=== PATIENT | female | born 1995 | race Caucasian/White ===

== ENCOUNTER → 2023-02-12 | Outpatient (CLI) | payer BC ==
[2023-02-12 21:42] LABS: Basophils # (A) 0.07 X 10*3/uL (0.00-0.10); Basophils % (A) 0.9 %; Eosinophils # (A) 0.14 X 10*3/uL (0.04-0.35); Eosinophils % (A) 1.8 %; HCT 39.5 % (37.2-46.3); Lymphocytes # (A) 2.94 X 10*3/uL (0.90-5.00); Lymphocytes % (A) 37.2 %; MCH 31.2 pg (27.0-32.0); MCHC 32.9 g/dL (32.0-37.0); MCV 94.7 FL (80.0-97.0); Mean Platelet Volume 10.6 FL (9.5-12.2); Monocytes # (A) 0.49 X 10*3/uL (0.20-1.00); Monocytes % (A) 6.2 %; NRBC Per 100 WBC 0 X 10*3/uL (0.00-0.01); Neutrophils # (A) 4.24 X 10*3/uL (1.80-7.70); Neutrophils % (A) 53.6 %; Platelet Count 316 X 10*3/uL (140-440); RBC 4.17 X 10*6/uL (4.10-5.20); RDW 12.2 % (11.5-14.5)
== END | disposition home or self-care (01) ==
LOC: LABPAT 15:14
PROVIDERS: ATTEND Obstetrics & Gynecology
DX: Z01.812 Encounter for preprocedural laboratory examination (principal); T83.9XXA Unspecified complication of genitourinary prosthetic device, implant and graft, initial encounter; Y82.9 Unspecified medical devices associated with adverse incidents
CPT/HCPCS: 85025

== ENCOUNTER 2023-02-16 09:04 | Day surgery (SDC) | payer BC ==
[~2023-02-16 09:04] MED LIST: DEXAMETHASONE SOD PHOSPHATE 4 MG/ML 1 ML VIAL IV ONE; HYDROmorphone 0.5 MG/0.5 ML SYRINGE IVP PRN; LACTATED RINGERS 1,000 ML IV SCH; LIDOCAINE 1% (10MG/ML) FOR IV START INTRADERMA PRN; ONDANSETRON 4 MG/2 ML VIAL IVP ONE; Pre Op ABX Message 1 EACH MISC MISCELLANE ONE; droPERidol 5 MG/2 ML VIAL IVP ONE
[2023-02-16 09:49] VITALS: RESP 16
[2023-02-16] MEDS ORDERED: METOCLOPRAMIDE 5 MG/ML 2 ML VIAL ONE (10:01)
[2023-02-16] MEDS ORDERED: FAMOTIDINE 20 MG/2 ML VIAL IVP ONE (10:10)
[2023-02-16] MEDS ORDERED: LIDOCAINE 1% INJ 10MG/ML (20 ML MDV) ONE (11:21)
[2023-02-16] MEDS ORDERED: SUCCINYLCHOLINE CHLORIDE 200 MG/10 ML VIAL IV ONE (11:21)
[2023-02-16] MEDS ORDERED: MIDAZOLAM 2 MG/2 ML VIAL ONE (11:21)
[2023-02-16] MEDS ORDERED: PROPOFOL 10 MG/ML 20 ML VIAL IV ONE (11:21)
[2023-02-16] MEDS ORDERED: fentaNYL (PF) 50 MCG/ML 2 ML AMP ONE (11:21)
--- NOTE | 2023-02-16 11:53 | P.OP ---
Date of Procedure: 02/16/23 Preoperative Diagnosis: Retained IUD with lost strings Postoperative Diagnosis: Same Procedure(s) Performed: Exam Under Anesthesia, Cervical Dilation, and Removal IUD Implants: None Anesthesia: ZACKARYA Surgeon: Velma Chapin Estimated Blood Loss (ml): 5 IV fluids (ml): 300 Urine output (ml): 500 Pathology: none sent Condition: stable Disposition: same day Indications for Procedure: Ms. Huerta is a 27 year old G0 with a Paragard IUD placed in 2018 from which she has had progressively worsening pelvic pain. On ultrasound in the office, one of the IUD arms appeared to be partially embedded within the myometrium. Removal in the office was unsuccessful as the IUD strings broke off. The risks, benefits, and alternatives to Hysteroscopy and Removal of IUD were discussed with the patient including risk of bleeding, infection, and damage to surrounding structures. The patient understands these risks and desires to proceed with the surgery as scheduled. Operative Findings: Low-lying IUD within the cervical canal. Description of Procedure: Patient is brought to the operating suite and placed in the dorsal lithotomy position. The cervix perineum and lower abdomen are prepped and draped in the usual sterile fashion. Examination under anesthesia reveals an anteverted uterus. Adnexa are negative bilaterally. The bladder is drained for approx imately 500 mL of clear yellow urine. The anterior lip of the cervix is grasped with a double toothed tenaculum after the weighted speculum is placed into the vagina. The Hanks dilators are placed and the cervix was dilated to 12 mm. At this time, a polyp forcep is introduced in the cervical canal and the Paragard IUD is grasped and removed. The Paragard IUD is noted to be intact. All sponge needle and instrument counts are correct. Instrumentation is removed from the vagina and the patient is brought to the recovery room in stable condition. Patient will follow up with me in the office in 2 weeks. Verbal and written instructions are provided.
[2023-02-16 12:18] VITALS: TEMP 97.2
[2023-02-16 13:34] VITALS: BP 104/68; PULSE 62
== END 2023-02-16 13:48 | disposition home or self-care (01) ==
LOC: OR 09:04
PROVIDERS: ATTEND Obstetrics & Gynecology
DX: T83.9XXA Unspecified complication of genitourinary prosthetic device, implant and graft, initial encounter (principal); J30.2 Other seasonal allergic rhinitis; Z88.2 Allergy status to sulfonamides; Z98.890 Other specified postprocedural states; Z79.899 Other long term (current) drug therapy
CPT/HCPCS: 81025; 58301; J2250; J0330; J1100; J2765; J2405; J2001; J3010; J3490; J2704